=== PATIENT | male | born 1970 | race Caucasian/White ===

== ENCOUNTER 2019-03-11 17:08 | Emergency (ER) | payer OTHER ==
[2019-03-11 17:33] VITALS: BP 130/74
[2019-03-11] MEDS ORDERED: Ketorolac INJ* 30 MG/ML 1 ML VIAL IM ONE (17:44)
--- NOTE | 2019-03-11 17:59 | UC ---
Back Pain HPI - HPI Summary HPI Summary: Pt has a history of sciatica. He wears a TENS unit for pain. He rode in a car for 6-7 hours today from [place] and his sciatica (which had already been bothering him) flared up on the way. He denies any numbness in his extremities, no saddle anesthesia, no problems urinating or with bowel movements. - History of Current Complaint Chief Complaint: UCRespiratory Stated Complaint: BACK PAIN Time Seen by Provider: 03/11/19 17:35 Hx Obtained From: Patient, Family/Sizer Hand Onset/Duration: Gradual Onset Timing: Constant Severity Initially: Moderate Severity Currently: Moderate Pain Intensity: 8 Character: Sharp, Spasmodic Aggravating Factor(s): Movement, Lifting, Bending Alleviating Factor(s): Nothing Associated Signs And Symptoms: Positive: Negative. Negative: Numbness, Tingling , Flank Pain, Bladder Incontinence, Bowel Incontinence - Allergies/Home Medications Allergies/Adverse Reactions: Allergies Allergy/AdvReac Type Severity Reaction Status Date / Time Penicillins Allergy Hives Verified 03/11/19 17:24 Home Medications: Home Medications Nebivolol HCl [Bystolic] 5 mg PO QAM 03/11/19 [History Confirmed 03/11/19] PMH/Surg Hx/FS Hx/Imm Hx Previously Healthy: Yes Cardiovascular History: Hypertension Other Cardiovascular History: SVT - Surgical History Surgical History: Yes Surgery Procedure, Year, and Place: bilat knee x4 - Family History Known Family History: Positive: Non-Contributory - Social History Alcohol Use: None Substance Use Type: None Smoking Status (MU): Light Every Day Tobacco Smoker Type: Cigarettes Amount Used/How Often: 5-6 CIG/DAY Review of Systems All Other Systems Reviewed And Are Negative: Yes Skin: Positive: Other - Poor circulation in extremities, no worse today Motor: Positive: Negative Neurovascular: Positive: Negative Musculoskeletal: Positive: Negative, Decreased ROM - Decreased ROM due to pain, but pt is ambulatory Neurological: Positive: Negative Is Patient Immunocompromised?: No Physical Exam Triage Information Reviewed: Yes Appearance: Well-Appearing, No Pain Distress, Well-Nourished Vital Signs: Initial Vital Signs Temp 96.2 F 03/11/19 17:25 Pulse 81 03/11/19 17:25 Resp 18 03/11/19 17:25 BP 130/74 03/11/19 17:25 Pulse Ox 96 03/11/19 17:25 Vital Signs Reviewed: Yes Respiratory: Positive: Lungs clear, Normal breath sounds, No respiratory distress, No accessory muscle use Cardiovascular: Positive: RRR, No Murmur, Pulses Normal, Brisk Capillary Refill Musculoskeletal: Positive: Strength Intact, ROM Limited @ - ROM limited due to pain inleft leg and shooting down left leg. Neurological: Positive: Alert, Muscle Tone Normal - Good periph pulses, neurosensation and cap refill. Skin: Positive: Other - Lower legs mildly discolored due to his chronic circulatory problems. Back Pain Course/Dx - Course Course Of Treatment: Flare up of sciatica which is a chronic problem for this patient. He is attempting to lose weight, he wears a TENS unit for pain. He has a graduation to attend tomorrow. He is given a Toradol 30mg IM injection here, started on a prednisone taper and to continue Motrin and flexeril. I advised him not to take 1000 mg of Motrin, to take 600 mg with food. - Differential Dx/Diagnosis Provider Diagnosis: Sciatica of left side Discharge - Sign-Out/Discharge Documenting (check all that apply): Patient Departure All imaging exams completed and their final reports reviewed: No Studies - Discharge Plan Condition: Fair Disposition: HOME Prescriptions: Cyclobenzaprine TAB* [Flexeril 10 MG TAB*] 10 mg PO TID PRN #15 tab PRN Reason: Pain predniSONE [Prednisone 20 MG TAB] 20 mg PO DAILY 9 Days #18 tablet Patient Education Materials: Sciatica (ED), Lower Back Exercises (ED) Referrals: Care [facility] [Outside] No Primary Care Phys,NOPCP [Primary Care Provider] - Additional Instructions: Avoid movements that cause, avoid excessive sitting or standing. No drinking alcohol, driving or operating machinery while you are taking the muscle relaxant. Follow up with your doctor if no improvement in 3-4 days. - Billing Disposition and Condition Condition: FAIR Disposition: Home - Attestation Statements Provider Attestation: I was available for consult. This patient was seen by the KALI. The patient was not presented to, seen by, or examined by me. -[email or web address]
== END 2019-03-11 18:05 | disposition home or self-care (01) ==
LOC: UCCORT 17:08
DX: M54.32 Sciatica, left side (principal); F17.210 Nicotine dependence, cigarettes, uncomplicated; I10 Essential (primary) hypertension; Z88.0 Allergy status to penicillin
CPT/HCPCS: 96372; 99202; G0463; J1885